=== PATIENT | female | born 1990 | race Hispanic/Latino ===

== ENCOUNTER 2018-04-17 02:06 | Emergency (ER) | payer OTHER, SELFPAY ==
[2018-04-17] MEDS ORDERED: IBUPROFEN 200 MG TAB PO ONE (02:57)
[2018-04-17] MEDS ORDERED: IBUPROFEN 400 MG TAB ONE (02:57)
--- NOTE | 2018-04-17 03:27 | EDPHYS ---
Physician Documentation [facility] Name: Mecca Johnson Age: 28 yrs Sex: Female : 1990 Arrival Date: 04/17/2018 Time: 02:13 Bed 17 Private MD: ED Physician Jackson Duenas HPI: 04/17 02:51 This 28 yrs old Female presents to ER via Wheelchair with complaints of Ankle pm1 Injury, Ankle Swelling. 02:51 The patient presents with pain, swelling. The complaints affect the right ankle. pm1 02:52 Onset: The symptoms/episode began/occurred last night. Context: The problem was pm1 sustained outdoors, resulted from Stepped in a hole, the patient is able to ambulate, patient able to drive here. Associated signs and symptoms: Pertinent positives: swelling, Pertinent negatives: calf tenderness. Modifying factors: the symptoms are aggravated by weight bearing, movement. Severity of symptoms: in the emergency department the symptoms are actually worse. The patient has not experienced similar symptoms in the past. Patient accidentally stepped in a hole in the grass resulting in right ankle pain. Attempted to ice without improvement. 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 - Social history:: Smoking status: Patient uses tobacco products, denies chronic smoking, but will smoke occasionally. - Ebola Screening: : No symptoms or risks identified at this time. ROS: 02:52 Constitutional: Negative for fever, chills, and weight loss, Eyes: Negative for injury, pm1 pain, redness, and discharge, ENT: Negative for injury, pain, and discharge, Neck: Negative for injury, pain, and swelling, Cardiovascular: Negative for chest pain, palpitations, and edema, Respiratory: Negative for shortness of breath, cough, wheezing, and pleuritic chest pain, Abdomen/GI: Negative for abdominal pain, nausea, vomiting, diarrhea, and constipation, Back: Negative for injury and pain. 02:52 MS/extremity: Positive for pain, swelling, of the anterior aspect of right ankle. Exam: 02:54 Constitutional: This is a well developed, well nourished patient who is awake, alert, pm1 and in no acute distress. Head/Face: Normocephalic, atraumatic. Neck: Trachea midline, no thyromegaly or masses palpated, and no cervical lymphadenopathy. Supple, full range of motion without nuchal rigidity, or vertebral point tenderness. No Meningismus. Chest/axilla: Normal chest wall appearance and motion. Nontender with no deformity. No lesions are appreciated. Cardiovascular: Regular rate and rhythm with a normal S1 and S2. No gallops, murmurs, or rubs. Normal PMI, no JVD. No pulse deficits. Respiratory: Lungs have equal breath sounds bilaterally, clear to auscultation and percussion. No rales, rhonchi or wheezes noted. No increased work of breathing, no retractions or nasal flaring. Abdomen/GI: Soft, non-tender, with normal bowel sounds. No distension or tympany. No guarding or rebound. No evidence of tenderness throughout. Back: No spinal tenderness. No costovertebral tenderness. Full range of motion. Skin: Warm, dry with normal turgor. Normal color with no rashes, no lesions, and no evidence of cellulitis. 02:54 Musculoskeletal/extremity: Extremities: grossly normal except: noted in the right ankle and anterior aspect of right ankle: swelling, tenderness. 02:54 Neuro: Orientation: is normal, Motor: moves all fours, Sensation: is normal, no obvious gross deficits. Vital Signs: 02:21 BP 120 / 92; Pulse 76; Resp 20; Temp 98.5(O); Pulse Ox 100% on R/A; Weight 129.27 kg ak1 (R); Height 5 ft. 0 in. (152.40 cm) (R); Pain 7/10; 03:51 BP 104 / 76; Pulse 63; Resp 16; Pulse Ox 100% on R/A; Pain 0/10; ao 02:21 Body Mass Index 55.66 (129.27 kg, 152.40 cm) ak1 MDM: 02:49 Patient medically screened. pm1 03:23 Data reviewed: vital signs. Data interpreted: Pulse oximetry: on room air is 100 %. pm1 Interpretation: normal. Counseling: I had a detailed discussion with the patient and/or guardian regarding: the historical points, exam findings, and any diagnostic results supporting the discharge/admit diagnosis, radiology results, the need for outpatient follow up, to return to the emergency department if symptoms worsen or persist or if there are any questions or concerns that arise at home. 04/17 02:51 Order name: Ankle Right 3 View XRAY pm1 04/17 03:23 Order name: Aircast Ankle Splint; Complete Time: 03:32 pm1 Administered Medications: 03:00 Drug: Ibuprofen 600 mg Route: PO; ao 03:32 Follow up: Response: No adverse reaction ao Disposition: 05:23 Co-signature as Attending Physician, Jackson Duenas MD I agree with the assessment and kdr plan of care. Disposition: 04/17/18 03:26 Discharged to Home. Impression: Sprain of other ligament of right ankle. - Condition is Stable. - Discharge Instructions: Ankle Sprain. - Prescriptions for Naprosyn 500 mg Oral Tablet - take 1 tablet by ORAL route 2 times per day take with food; 30 tablet. Tylenol- Codeine #3 300-30 mg Oral Tablet - take 2 tablets by ORAL route every 6 hours As needed; 20 tablet. - Work release form, Medication Reconciliation Form, Thank You Letter form. - Follow up: Emergency Department; When: As needed; Reason: Worsening of condition. Follow up: Private Physician; When: 2 - 3 days; Reason: Recheck today's complaints, Continuance of care, Re-evaluation by your physician. - Problem is new. - Symptoms have improved. Signatures: Dispatcher [employer] EDMS Jackson Duenas MD MD [facility] Afua Huffman RN RN ak1 Avelino Ballard RN RN Gabriele Ferguson, JUAN MANUEL COLLECTIONS DIRECTOR pm1 Corrections: (The following items were deleted from the chart) 03:53 03:26 04/17/2018 03:26 Discharged to Home. Impression: Sprain of other ligament of ao right ankle. Condition is Stable. Forms are Medication Reconciliation Form, Thank You Letter, Antibiotic Education, Prescription Opioid Use. Follow up: Emergency Department; When: As needed; Reason: Worsening of condition. Follow up: Private Physician; When: 2 - 3 days; Reason: Recheck today's complaints, Continuance of care, Re-evaluation by your physician. Problem is new. Symptoms have improved. pm1
--- NOTE | 2018-04-17 03:27 | ER ---
Nurse's Notes [facility] Name: Mecca Johnson Age: 28 yrs Sex: Female : 1990 Arrival Date: 04/17/2018 Time: 02:13 Bed 17 Private MD: Diagnosis: Sprain of other ligament of right ankle Presentation: 04/17 02:22 Presenting complaint: Patient states: rolled her right ankle at 2300 last night. pt ak1 tried ice and elevating right leg but swelling and pain increased. Transition of care: patient was not received from another setting of care. Onset of symptoms was April 17, 2018. Risk Assessment: Do you want to hurt yourself or someone else? Patient reports no desire to harm self or others. Initial Sepsis Screen: Does the patient meet any 2 criteria? No. Patient's initial sepsis screen is negative. Does the patient have a suspected source of infection? No. Patient's initial sepsis screen is negative. Care prior to arrival: ice and elevation. 02:22 Acuity: PIERCE 4 ak1 02:22 Method Of Arrival: Wheelchair ak1 Triage Assessment: 02:25 General: Appears in no apparent distress. Behavior is calm, cooperative. Pain: ak1 Complains of pain in right lateral malleolus. EENT: No signs and/or symptoms were reported regarding the EENT system. Neuro: No deficits noted. Cardiovascular: No deficits noted. Respiratory: No deficits noted. GI: No signs and/or symptoms were reported involving the gastrointestinal system. : No signs and/or symptoms were reported regarding the genitourinary system. Derm: No signs and/or symptoms reported regarding the dermatologic system. Musculoskeletal: Swelling present in right lateral malleolus. 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 - Social history:: Smoking status: Patient uses tobacco products, denies chronic smoking, but will smoke occasionally. - Ebola Screening: : No symptoms or risks identified at this time. Screenin:26 Abuse screen: Denies threats or abuse. Denies injuries from another. Nutritional ak1 screening: No deficits noted. Tuberculosis screening: No symptoms or risk factors identified. Fall Risk None identified. Assessment: 02:30 General: Appears in no apparent distress. comfortable, Behavior is calm, cooperative, ao appropriate for age. Pain: Complains of pain in right foot. Neuro: Level of Consciousness is awake, alert, obeys commands, Oriented to person, place, time, situation, Appropriate for age Moves all extremities. Speech is normal, Facial symmetry appears normal. Cardiovascular: Capillary refill < 3 seconds Patient's skin is warm and dry. Respiratory: Airway is patent Respiratory effort is even, unlabored, Respiratory pattern is regular, symmetrical. GI: Abdomen is non-distended. : No signs and/or symptoms were reported regarding the genitourinary system. EENT: No signs and/or symptoms were reported regarding the EENT system. Derm: Skin is intact, Skin temperature is warm. Musculoskeletal: Range of motion: intact in all extremities. 03:51 Reassessment: Dc home by wheel chair. Patient agree with the POC and to follow up with ao and orthopedic doctor. Vital Signs: 02:21 BP 120 / 92; Pulse 76; Resp 20; Temp 98.5(O); Pulse Ox 100% on R/A; Weight 129.27 kg ak1 (R); Height 5 ft. 0 in. (152.40 cm) (R); Pain 7/10; 03:51 BP 104 / 76; Pulse 63; Resp 16; Pulse Ox 100% on R/A; Pain 0/10; ao 02:21 Body Mass Index 55.66 (129.27 kg, 152.40 cm) ak1 ED Course: 02:13 Patient arrived in ED. al2 02:23 Triage completed. ak1 02:24 Avelino Ballard, RN is Primary Nurse. ao 02:25 Arm band placed on Patient placed in an exam room, on a stretcher, on pulse oximetry, ak1 Patient notified of wait time. 02:26 Patient has correct armband on for positive identification. Bed in low position. Call ak1 light in reach. Side rails up X 1. Pulse ox on. NIBP on. 02:49 Gabriele Watt NP is PHCP. pm1 02:49 Jackson Duenas MD is Attending Physician. pm1 03:07 X-ray completed. Portable x-ray completed in exam room. Patient tolerated procedure kw well. 03:08 Ankle Right 3 View XRAY In Process Unspecified. EDMS 03:53 No provider procedures requiring assistance completed. Patient did not have IV access ao during this emergency room visit. Administered Medications: 03:00 Drug: Ibuprofen 600 mg Route: PO; ao 03:32 Follow up: Response: No adverse reaction ao Outcome: 03:26 Discharge ordered by MD. pm1 03:53 Discharged to home via wheelchair. ao 03:53 Condition: stable 03:53 Discharge instructions given to patient, Instructed on discharge instructions, follow up and referral plans. Demonstrated understanding of instructions, follow-up care, medications, Prescriptions given X 2. 03:53 Patient left the ED. ao Signatures: Dispatcher [employer] EDMS Kristie Brown Amber RN RN ak1 Avelino Ballard RN RN Gabriele Ferguson, JUAN MANUEL SUPERVISOR OF WAY pm1 Nicole Sampson2
[2018-04-17 03:58] VITALS: TEMP 98.5; O2SAT 100
[2018-04-17 03:59] VITALS: BP 104/76
--- NOTE | 2018-04-17 09:21 | RAD REPORT ---
EXAM DESCRIPTION: RAD - Ankle Right 3 View - 04/17/2018 3:08 am CLINICAL HISTORY: Right ankle pain status post injury FINDINGS: No fracture or dislocation is seen. Marked lateral soft tissue swelling is present . If the patient continues have symptoms to suggest an occult fracture then a followup plain film series in 1 week would be recommended
== END 2018-04-17 03:53 | disposition home or self-care (01) ==
LOC: ER 02:06
DX: S93.491A Sprain of other ligament of right ankle, initial encounter (principal); X58.XXXA Exposure to other specified factors, initial encounter; Y93.01 Activity, walking, marching and hiking; Y92.9 Unspecified place or not applicable; Z72.0 Tobacco use
CPT/HCPCS: 99284

== ENCOUNTER 2021-12-12 18:28 | Inpatient (IN) | payer BC, SELFPAY ==
[2021-12-12 19:24] LABS: Urine Blood Trace-intact (Negative); Urine Glucose Negative (Negative); Urine Protein Negative (Negative); Urine Specific Gravity 1.025 (1.005-1.030)
[2021-12-12] MEDS ORDERED: MORPHINE 4 MG/ML SYR ONE ×2 (19:26→21:12)
[2021-12-12] MEDS ORDERED: ONDANSETRON 4 MG/2 ML VIAL ONE (19:26)
[2021-12-12] MEDS ORDERED: FAMOTIDINE 20 MG/2 ML VIAL IV ONE (19:27)
[2021-12-12] MEDS ORDERED: NA CHLORIDE 0.9% 1,000 ML ONE ×2 (19:27→20:38)
[2021-12-12 19:36] LABS: Absolute Lymphocytes (CBC) 2.2 K/uL (0.7-4.9); Hematocrit 37.5 % (36.0-45.0); MPV 9.6 fL (7.6-11.3); RBC Red Blood Cell Count 4.78 M/uL (3.86-4.86)
[2021-12-12 19:50] LABS: AST/SGOT 21 U/L (15-37); Albumin 3.4 g/dL (3.4-5.0); Alkaline Phosphatase 114 U/L (45-117); BUN Blood Urea Nitrogen 10 mg/dL (7-18); Bicarbonate 30 mmol/L (21-32); Glucose Level 92 mg/dL (74-106); Lipase 2387 U/L (73-393); Potassium 3.4 mmol/L (3.5-5.1); Protein, Total 8.1 g/dL (6.4-8.2); Sodium Level 137 mmol/L (136-145)
[2021-12-12 20:02] LABS: Urine Specific Gravity/Preg 1.025 (1.005-1.030)
--- NOTE | 2021-12-12 20:41 | RAD REPORT ---
EXAM DESCRIPTION: CTAbdomen Pelvis W Contrast - 12/12/2021 8:06 pm CLINICAL HISTORY: ABD PAIN COMPARISON: <Comparisons> TECHNIQUE: CT of the abdomen and pelvis was performed. All CT scans are performed using dose optimization technique as appropriate and may include automated exposure control or mA/KV adjustment according to patient size. FINDINGS: Lower chest: No acute abnormality. Liver: Hepatic steatosis . Biliary: No biliary ductal dilatation. Stomach: No significant focal abnormality. Duodenum: No significant focal abnormality. Pancreas: Mild stranding at the tail of the pancreas. Spleen: No significant abnormality. Adrenal: No suspicious lesions. Kidney/ureter: No hydronephrosis. No renal calculi. Too small to characterize and/or benign appearing renal lesions are noted. Retroperitoneum: No retroperitoneal adenopathy. Vascular: No aneurysm. Bowel: No significant focal abnormality. Peritoneum: No ascites or free air. Moderate fat containing ventral hernia. Bladder: Grossly unremarkable. Reproductive: No adnexal masses. Bones: No acute fracture. Other: n/a IMPRESSION: Mild pancreatitis involving the pancreatic tail without complicating features.
--- NOTE | 2021-12-12 20:42 | RAD REPORT ---
EXAM DESCRIPTION: US - Abdomen Exam Limited - 12/12/2021 8:36 pm CLINICAL HISTORY: EPIGASTRIC PAIN COMPARISON: Abdomen Pelvis W Contrast dated 12/12/2021 FINDINGS: The gallbladder demonstrates no gallstones. No pericholecystic fluid or gallbladder wall t hickening. The common bile duct is normal measuring 4 mm. The liver demonstrates no findings of intrahepatic biliary dilatation. IMPRESSION: Unremarkable examination.
--- NOTE | 2021-12-12 21:05 | EDPHYS ---
Physician Documentation [facility] Name: Mecca Johnson Age: 31 yrs Sex: Female : 1990 Arrival Date: 12/12/2021 Time: 18:32 Bed 14 Private MD: ED Physician Ty Khan HPI: 12/12 18:55 This 31 yrs old Female presents to ER via Ambulatory with complaints of pm1 Epigastric Pain. 18:55 The patient presents with abdominal pain in the epigastric area. Onset: The pm1 symptoms/episode began/occurred yesterday. The symptoms radiate to left upper quadrant. Associated signs and symptoms: Pertinent positives: nausea, Pertinent negatives: diarrhea, dysuria, fever, vomiting. The symptoms are described as achy, constant. Modifying factors: The symptoms are alleviated by nothing, the symptoms are aggravated by drinking, food. Severity of pain: in the emergency department the pain is actually worse. The patient has not experienced similar symptoms in the past. The patient has not recently seen a physician. 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 - Social history:: Smoking status: Patient denies any tobacco usage or history of. ROS: 18:55 Constitutional: Negative for fever, chills, and weight loss, Cardiovascular: Negative pm1 for chest pain, palpitations, and edema, Respiratory: Negative for shortness of breath, cough, wheezing, and pleuritic chest pain. 18:55 Back: Negative for injury and pain, : Negative for injury, bleeding, discharge, and swelling, MS/Extremity: Negative for injury and deformity, Skin: Negative for injury, rash, and discoloration, Neuro: Negative for headache, weakness, numbness, tingling, and seizure. 18:55 Abdomen/GI: Positive for abdominal pain, nausea, of the left upper quadrant, Negative for vomiting, diarrhea. 18:55 All other systems are negative. Exam: 18:55 Constitutional: This is a well developed, well nourished patient who is awake, alert, pm1 and in no acute distress. Head/Face: Normocephalic, atraumatic. 18:55 Back: No spinal tenderness. No costovertebral tenderness. Full range of motion. Skin: Warm, dry with normal turgor. Normal color with no rashes, no lesions, and no evidence of cellulitis. MS/ Extremity: Pulses equal, no cyanosis. Neurovascular intact. Full, normal range of motion. 18:55 Cardiovascular: Exam negative for acute changes, Rate: normal, Rhythm: regular, Pulses: no pulse deficits are appreciated, Heart sounds: normal, normal S1and S2. 18:55 Respiratory: Exam negative for acute changes, respiratory distress, shortness of breath, Breath sounds: are clear throughout. 18:55 Abdomen/GI: Inspection: obese Palpation: soft, in all quadrants, mild abdominal tenderness, in the epigastric area and left upper quadrant. 18:55 Neuro: Exam negative for acute changes, Orientation: is normal, Mentation: is normal, Motor: is normal, moves all fours. Vital Signs: 18:36 BP 147 / 72; Pulse 105; Resp 18; Temp 98.4(O); Pulse Ox 100% on R/A; Weight 133.81 kg; roldan Height 5 ft. 0 in. (152.40 cm); 19:30 BP 109 / 69; Pulse 91; Resp 18; Pulse Ox 98% on R/A; vc1 21:00 BP 109 / 73; Pulse 83; Resp 18; Pulse Ox 100% on R/A; vc1 18:36 Body Mass Index 57.61 (133.81 kg, 152.40 cm) roldan MDM: 18:41 Patient medically screened. pm1 20:19 Data reviewed: vital signs. Data interpreted: Pulse oximetry: on room air is 98 %. pm1 Interpretation: normal. 21:03 Counseling: I had a detailed discussion with the patient and/or guardian regarding: the pm1 historical points, exam findings, and any diagnostic results supporting the discharge/admit diagnosis, lab results, radiology results, the need for further work-up and treatment in the hospital. 12/12 18:55 Order name: Basic Metabolic Panel pm1 12/12 18:55 Order name: CBC with Diff pm1 12/12 18:55 Order name: Hepatic Function pm1 12/12 18:55 Order name: Lipase pm1 12/12 18:56 Order name: Basic Metabolic Panel; Complete Time: 21:17 EDMS 12/12 18:56 Order name: CBC with Automated Diff; Complete Time: 19:45 EDMS 12/12 18:56 Order name: Liver (Hepatic) Function; Complete Time: 21:17 EDMS 12/12 18:56 Order name: Lipase; Complete Time: 21:17 EDMS 12/12 19:23 Order name: Urine Dipstick-Ancillary; Complete Time: 19:32 EDMS 12/12 19:25 Order name: Urine --Ancillary (enter results) ds4 12/12 19:26 Order name: Urine --Ancillary; Complete Time: 20:06 EDMS 12/12 20:59 Order name: COVID-19 SARS RT PCR (Document "Date of Onset" if Symptomatic); Complete lp1 Time: 22:15 12/12 21:03 Order name: ETOH Level; Complete Time: 21:53 la1 12/12 21:03 Order name: Lipid Profile; Complete Time: 21:37 la1 12/12 18:55 Order name: IV Saline Lock; Complete Time: 19:34 pm1 12/12 18:55 Order name: Labs collected and sent; Complete Time: 19:34 pm1 12/12 18:55 Order name: Urine Dipstick-Ancillary (obtain specimen); Complete Time: 19:34 pm1 12/12 18:55 Order name: Urine Test (obtain specimen); Complete Time: 19:34 pm1 12/12 18:55 Order name: CT Abd/Pelvis - IV Contrast Only; Complete Time: 20:57 pm1 12/12 20:06 Order name: US Abdomen Limited; Complete Time: 20:57 pm1 12/13 04:32 Order name: CBC with Automated Diff EDMS 12/13 05:02 Order name: Comprehensive Metabolic Panel EDMS 12/13 05:02 Order name: Lipase EDMS 12/12 20:06 Order name: NPO; Complete Time: 20:40 pm1 Administered Medications: 19:33 Drug: Pepcid (famotidine) 20 mg Route: IVP; Site: right antecubital; vc1 12/13 03:23 Follow up: Response: No adverse reaction vc12/12 19:33 Drug: morphine 4 mg Route: IVP; Site: right antecubital; vc1 21:00 Follow up: Response: No adverse reaction vc1 19:33 Drug: Zofran (Ondansetron) 4 mg Route: IVP; Site: right antecubital; vc1 21:00 Follow up: Response: No adverse reaction vc1 19:33 Drug: NS 0.9% 1000 ml Route: IV; Rate: 1000 ml; Site: right antecubital; vc1 21:00 Follow up: IV Status: Completed infusion; IV Intake: 1000ml vc1 20:40 Drug: NS 0.9% 1000 ml Route: IV; Rate: 125 ml/hr; Site: right antecubital; vc1 12/13 00:00 Follow up: IV Status: Completed infusion; IV Intake: 500ml vc1 12/12 21:22 Drug: morphine 4 mg Route: IVP; Site: right antecubital; vc1 23:00 Follow up: Response: No adverse reaction; Pain is decreased vc1 12/13 01:30 Drug: Ketorolac 15 mg Route: IVP; Site: right antecubital; vc1 01:45 Follow up: Response: No adverse reaction vc1 Disposition: 12/14 19:03 Co-signature as Attending Physician, Ty Khan MD I agree with the assessment and rn plan of care. Attestation: The patient's history, exam findings, diagnostics, and a summary of any interventions or procedures was reviewed in detail with Gabriele Watt NP. Disposition Summary: 12/12/21 21:05 Hospitalization Ordered Hospitalization Status: Inpatient Admission pm1 Provider: Precious Mao pm1 Condition: Stable pm1 Problem: new pm1 Symptoms: have improved pm1 Bed/Room Type: Standard pm1 Location: Telemetry/MedSurg (Inpatient)(12/13/21 18:44) Room Assignment: [facility](12/13/21 18:44) Diagnosis - Acute pancreatitis pm1 Forms: - Medication Reconciliation Form pm1 - SBAR form pm1 Signatures: Dispatcher [employer] EDTy Galarza MD MD rn Garcia, Cindy, RN RN cg Marinas, Patrick, NP NP pm1 Au-Venessa Meyer RN RN ha Calcote, Vanessa, RN RN vc1 Corrections: (The following items were deleted from the chart) 12/12 19:38 18:37 PSHx: None; roldan vc1 19:38 19:35 PMHx: x2; vc1 vc1 22:30 21:05 Telemetry/MedSurg (Inpatient) pm1 cg 22:30 21:05 pm1 cg 12/13 18:44 12/12 22:30 [facility] ER HOLD cg cg 12/13 18:44 12/12 22:30 ERHOLD- cg cg
--- NOTE | 2021-12-12 21:05 | ER ---
Nurse's Notes [facility] Name: Mecca Johnson Age: 31 yrs Sex: Female : 1990 Arrival Date: 12/12/2021 Time: 18:32 Bed 14 Private MD: Diagnosis: Acute pancreatitis Presentation: 12/12 18:36 Chief complaint: Patient states: abdominal pain, painful after eating and drinkin. roldan Coronavirus screen: Vaccine status: Patient reports being unvaccinated. Ebola Screen: Patient denies travel to an Ebola-affected area in the 21 days before illness onset. Initial Sepsis Screen: Does the patient meet any 2 criteria? HR > 90 bpm. Does the patient have a suspected source of infection? No. Patient's initial sepsis screen is negative. Risk Assessment: Do you want to hurt yourself or someone else? Patient reports no desire to harm self or others. Onset of symptoms was December 11, 2021. 18:36 Method Of Arrival: Ambulatory roldan 18:36 Acuity: PIERCE 3 roldan Triage Assessment: 19:35 General: Appears in no apparent distress. comfortable, obese, Behavior is calm, vc1 cooperative, appropriate for age. Pain: Complains of pain in abdomen Pain currently is 8 out of 10 on a pain scale. GI: Abdomen is round non-distended, obese, Abd is soft and non tender X 4 quads. Reports lower abdominal pain, upper abdominal pain, nausea. 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 - Social history:: Smoking status: Patient denies any tobacco usage or history of. Screenin:00 Abuse screen: Denies threats or abuse. Nutritional screening: No deficits noted. vc1 Tuberculosis screening: No symptoms or risk factors identified. Fall Risk None identified. Assessment: 19:15 General: Appears in no apparent distress. uncomfortable, obese, Behavior is calm, vc1 cooperative, appropriate for age. Pain: Complains of pain in abdomen Pain currently is 8 out of 10 on a pain scale. Neuro: No deficits noted. Cardiovascular: No deficits noted. Respiratory: No deficits noted. GI: Abdomen is round non-distended, obese, Abd is soft and non tender Reports lower abdominal pain, upper abdominal pain, epigastric pain, flatulence, intolerance of food, nausea. 19:15 : No deficits noted. vc1 20:01 Reassessment: Patient appears in no apparent distress at this time. Patient and/or vc1 family updated on plan of care and expected duration. Pain level reassessed. Patient is alert, oriented x 3, equal unlabored respirations, skin warm/dry/pink. Patient states feeling better. Patient states symptoms have improved. Vital Signs: 18:36 BP 147 / 72; Pulse 105; Resp 18; Temp 98.4(O); Pulse Ox 100% on R/A; Weight 133.81 kg; roldan Height 5 ft. 0 in. (152.40 cm); 19:30 BP 109 / 69; Pulse 91; Resp 18; Pulse Ox 98% on R/A; vc1 21:00 BP 109 / 73; Pulse 83; Resp 18; Pulse Ox 100% on R/A; vc1 18:36 Body Mass Index 57.61 (133.81 kg, 152.40 cm) ED Course: 18:32 Patient arrived in ED. as 18:37 Triage completed. roldan 18:37 Arm band placed on right wrist. roldan 18:38 Venessa Hernandez, RN is Primary Nurse. roldan 18:39 Danielle Thrasher, RN is Primary Nurse. cb5 18:41 Gabriele Watt, IMCU NURSE is PHCP. pm1 18:41 Ty Khan MD is Attending Physician. pm1 19:00 Patient has correct armband on for positive identification. Bed in low position. Call vc1 light in reach. Side rails up X2. 19:33 Inserted saline lock: 20 gauge in right antecubital area, using aseptic technique. vc1 Blood collected. 19:34 Basic Metabolic Panel Sent. vc1 19:34 CBC with Diff Sent. vc1 19:34 Hepatic Function Sent. vc1 19:34 Lipase Sent. vc1 19:35 Urine --Ancillary (enter results) Sent. vc1 19:35 Lipase Sent. vc1 19:35 Liver (Hepatic) Function Sent. vc1 19:35 CBC with Automated Diff Sent. vc1 19:35 Basic Metabolic Panel Sent. vc1 20:07 CT Abd/Pelvis - IV Contrast Only In Process Unspecified. EDMS 20:38 US Abdomen Limited In Process Unspecified. EDMS 21:05 Precious Mao MD is Hospitalizing Provider. pm1 21:22 Lipid Profile Sent. vc1 : ETOH Level Sent. vc1 : COVID-19 SARS RT PCR (Document "Date of Onset" if Symptomatic) Sent. vc1 12/13 00:00 No provider procedures requiring assistance completed. Patient admitted, IV remains in vc1 place. 08:06 Primary Nurse role handed off by Danielle Thrasher RN bd Administered Medications: 12/12 19:33 Drug: Pepcid (famotidine) 20 mg Route: IVP; Site: right antecubital; vc1 12/13 03:23 Follow up: Response: No adverse reaction vc1 12/12 19:33 Drug: morphine 4 mg Route: IVP; Site: right antecubital; vc1 21:00 Follow up: Response: No adverse reaction 1 19:33 Drug: Zofran (Ondansetron) 4 mg Route: IVP; Site: right antecubital; vc1 21:00 Follow up: Response: No adverse reaction vc1 19:33 Drug: NS 0.9% 1000 ml Route: IV; Rate: 1000 ml; Site: right antecubital; vc1 21:00 Follow up: IV Status: Completed infusion; IV Intake: 1000ml vc1 20:40 Drug: NS 0.9% 1000 ml Route: IV; Rate: 125 ml/hr; Site: right antecubital; vc1 12/13 00:00 Follow up: IV Status: Completed infusion; IV Intake: 500ml vc1 12/12 21:22 Drug: morphine 4 mg Route: IVP; Site: right antecubital; vc1 23:00 Follow up: Response: No adverse reaction; Pain is decreased vc1 12/13 01:30 Drug: Ketorolac 15 mg Route: IVP; Site: right antecubital; vc1 01:45 Follow up: Response: No adverse reaction vc1 Intake: 12/12 21:00 IV: 1000ml; Total: 1000ml. vc1 12/13 00:00 IV: 500ml; Total: 1500ml. vc1 Outcome: 12/12 21:05 Decision to Hospitalize by Provider. pm1 12/13 00:00 Admitted to ER Hold. Please see [facility] for further documentation. vc1 Condition: good Instructed on the need for admit. 21:06 Patient left the ED. ll3 Signatures: Dispatcher [employer] EDMS Aubree Jansen Amelia as Marinas, Patrick, IMCU NURSE IMCU NURSE pm1 Aracelis Talamantes RN RN ll3 Au-Stager, PAMELA Clifford RN, Colleen, RN RN 5 Mecca Solorio RN RN vc1 Corrections: (The following items were deleted from the chart) 12/12 19:38 18:37 PSHx: None; roldan vc1 19:38 19:35 PMHx: x2; vc1 vc1
[2021-12-12 21:07] LABS: ALT/SGPT 34 U/L (12-78); Bilirubin Direct 0.1 mg/dL (0-0.2); Bilirubin Total 0.5 mg/dL (0.2-1.0)
--- NOTE | 2021-12-12 21:28 | P.HP ---
Certification for Inpatient Patient admitted to: Inpatient With expected LOS: >2 Midnights Patient will require the following post-hospital care: None Practitioner: I am a practitioner with admitting privileges, knowledge of patient current condition, hospital course, and medical plan of care. Services: Services provided to patient in accordance with Admission requirements found in Title 42 Section 412.3 of the Code of Federal Regulations Patient History Date of Service: 12/12/21 Primary Care Provider: none Reason for admission: Pancreatitis History of Present Illness: Patient is a 31-year-old female with no past medical history who presents to the ED with complaints of epigastric tenderness that radiates to the left. She states she started having pain in that region last night after eating dinner. She has not experienced pain like this before and denies a history of pancreatitis patient in the ED patient's lipase was 2387 potassium was 3.4, triglycerides pending, glucose 92. CT was positive for pancreatitis without complications. LFTs within normal range. Patient denies left upper quadrant pain. Patient will be admitted for further medical management and pain control of mild pancreatitis. 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 - Family History Mother -: Hypertension, Diabetes, Cancer Brother -: Liver disease, Other (see notes) - Social History Smoking Status: Never smoker Alcohol use: Yes CD- Drugs: No Caffeine use: Yes Place of Residence: Home Review of Systems 10-point ROS is otherwise unremarkable Gastrointestinal: Nausea, Abdominal Pain, As per HPI Physical Examination - Physical Exam General: Alert, In no apparent distress HEENT: Atraumatic, PERRLA, Mucous membr. moist/pink, EOMI, Sclerae nonicteric Neck: Supple, 2+ carotid pulse no bruit, No LAD, Without JVD or thyroid abnormality Respiratory: Clear to auscultation bilaterally, Normal air movement Cardiovascular: Regular rate/rhythm, Normal S1 S2 Gastrointestinal: Normal bowel sounds, No rebound, No guarding, Tenderness (mild epigastric tenderness) Musculoskeletal: No tenderness Integumentary: No rashes Neurological: Normal speech, Normal strength at 5/5 x4 extr, Normal tone, Normal affect - Studies Laboratory Data (last 24 hrs) 12/12/21 19:05: WBC 11.40 H, Hgb 12.1, Hct 37.5, Plt Count 294 12/12/21 19:05: Sodium 137, Potassium 3.4 L, BUN 10, Creatinine 0.74, Glucose 92, Total Bilirubin 0.5, AST 21, ALT 34, Alkaline Phosphatase 114, Lipase 2387 H Assessment and Plan - Plan Assessment: Acute pancreatitis without complication Morbid obesity Plan: Acute pancreatitis without complication: IVF 125 ml/hr. Morphine PRN. NPO. advance diet as tolerated. Trend lipase. pending triglycerides. Morbid obesity: address lifestyle change. DVT PPX: Lovenox Code status: Full Discharge Plan: Home Plan to discharge in: 48 Hours - Advance Directives Does patient have a Living Will: No Does patient have a Durable POA for Healthcare: No - Code Status/Comfort Care Code Status Assessed: Yes (full) Critical Care: No Time Spent Managing Pts Care (In Minutes): 55
[2021-12-12] MEDS ORDERED: ONDANSETRON 4 MG/2 ML VIAL IV PRN (22:40)
[2021-12-12] MEDS: D5.45NS W/KCL 20MEQ 1,000 ML IV SCH (22:40)
[2021-12-12] MEDS ORDERED: D5.45NS W/KCL 20MEQ 1,000 ML IV ONE (22:51)
[2021-12-12 23:15] VITALS: BMI 57.6
[2021-12-13] MEDS ORDERED: KETOROLAC 30 MG/ML INJ ONE (02:00)
[2021-12-13 04:26] LABS: Absolute Lymphocytes (CBC) 1.9 K/uL (0.7-4.9); Hematocrit 32.3 % (36.0-45.0); Lymphocytes % 19.3 % (15.3-44.8); MPV 9.5 fL (7.6-11.3); RBC Red Blood Cell Count 4.08 M/uL (3.86-4.86)
[2021-12-13 04:48] LABS: ALT/SGPT 29 U/L (12-78); AST/SGOT 13 U/L (15-37); Albumin 2.8 g/dL (3.4-5.0); Alkaline Phosphatase 96 U/L (45-117); BUN Blood Urea Nitrogen 11 mg/dL (7-18); Bicarbonate 25 mmol/L (21-32); Bilirubin Total 0.6 mg/dL (0.2-1.0); Glucose Level 147 mg/dL (74-106); Lipase 464 U/L (73-393); Potassium 3.8 mmol/L (3.5-5.1); Protein, Total 6.8 g/dL (6.4-8.2); Sodium Level 137 mmol/L (136-145)
[2021-12-13] MEDS: D5.45NS W/KCL 20MEQ 1,000 ML IV SCH ×2 (06:40→16:40)
[2021-12-13] MEDS ORDERED: D5.45NS W/KCL 20MEQ 1,000 ML IV ONE ×2 (06:52→16:21)
[2021-12-13] MEDS ORDERED: ENOXAPARIN 40 MG/0.4 ML SQ ONE (07:35)
[2021-12-13] MEDS: ENOXAPARIN 40 MG/0.4 ML SQ SCH (09:00)
[2021-12-13] MEDS ORDERED: MORPHINE 2 MG/ML SYR ONE (09:21)
[2021-12-13] MEDS ORDERED: ONDANSETRON 4 MG/2 ML VIAL ONE (09:21)
[2021-12-13] MEDS: MORPHINE 2 MG/ML SYR IV PRN ×2 (09:29→22:08)
--- NOTE | 2021-12-13 17:57 | P.PN ---
Subjective Date of Service: 12/13/21 Pain is much improved. Will start diet in the morning Review of Systems 10-point ROS is otherwise unremarkable Physical Examination - Vital Signs Temperature: 98.0 F Blood Pressure: 131/78 Pulse: 89 Respirations: 18 Pulse Ox (%): 98 - Physical Exam General: Alert, In no apparent distress HEENT: Atraumatic, PERRLA, EOMI Neck: Supple, JVD not distended Respiratory: Clear to auscultation bilaterally, Normal air movement Cardiovascular: Regular rate/rhythm, Normal S1 S2 Gastrointestinal: Normal bowel sounds, No tenderness Musculoskeletal: No tenderness Integumentary: No rashes Neurological: Normal speech, Normal tone, Normal affect Lymphatics: No axilla or inguinal lymphadenopathy - Studies Laboratory Data (last 24 hrs) 12/12/21 19:05: Triglycerides 98, Cholesterol 159, HDL Cholesterol 32 L, Cholesterol/HDL Ratio 4.97 12/12/21 19:05: WBC 11.40 H, Hgb 12.1, Hct 37.5, Plt Count 294 12/12/21 19:05: Sodium 137, Potassium 3.4 L, BUN 10, Creatinine 0.74, Glucose 92, Total Bilirubin 0.5, AST 21, ALT 34, Alkaline Phosphatase 114, Lipase 2387 H Medications List Reviewed: Yes Assessment & Plan - Problems (Diagnosis) (1) Acute pancreatitis Current Visit: Yes Status: Acute - Plan 1. Continue with IV hydration 2. Continue with IV antibiotics 3. Continue with pain control 4. Ice chips 5. Pain control 6. Monitor CBC, BMP, LFTs and lipase along with electrolytes. 7. GI and DVT prophylaxis Discharge Plan: Home Plan to discharge in: Greater than 2 days - Advance Directives Does patient have a Living Will: No Does patient have a Durable POA for Healthcare: No - Code Status/Comfort Care Code Status Assessed: Yes Code Status: Full Code Critical Care: No Time Spent Managing PTS Care (In Minutes): 35
[2021-12-14] MEDS: D5.45NS W/KCL 20MEQ 1,000 ML IV SCH ×2 (02:21→09:18)
[2021-12-14 02:22] VITALS: O2SAT 100
[2021-12-14 04:06] LABS: Hematocrit 31.6 % (36.0-45.0); Lymphocytes % 22.7 % (15.3-44.8); MPV 9.5 fL (7.6-11.3); RBC Red Blood Cell Count 4.01 M/uL (3.86-4.86)
[2021-12-14 04:34] LABS: ALT/SGPT 29 U/L (12-78); AST/SGOT 14 U/L (15-37); Albumin 2.8 g/dL (3.4-5.0); Alkaline Phosphatase 92 U/L (45-117); BUN Blood Urea Nitrogen 4 mg/dL (7-18); Bicarbonate 25 mmol/L (21-32); Bilirubin Total 0.9 mg/dL (0.2-1.0); Glucose Level 118 mg/dL (74-106); Lipase 149 U/L (73-393); Potassium 3.7 mmol/L (3.5-5.1); Sodium Level 137 mmol/L (136-145)
[2021-12-14] MEDS ORDERED: POTASSIUM CL 20 MEQ in NA CHLORIDE 0.9% 20 MEQ/100 ML BAG IV ONE (09:00)
[2021-12-14] MEDS: ENOXAPARIN 40 MG/0.4 ML SQ SCH (09:18)
[2021-12-14 13:00] VITALS: BP 112/64; TEMP 97.5
== END 2021-12-14 13:40 | disposition home or self-care (01) | DRG 438 ==
LOC: ER 18:28 → ERHOLD 21:20 → 4TH 12-13 20:22
PROVIDERS: ADMIT Hospitalist; ATTEND Hospitalist
DX: K85.90 Acute pancreatitis without necrosis or infection, unspecified (principal); U07.1 COVID-19; Z68.43 Body mass index [BMI] 50.0-59.9, adult; E66.01 Morbid (severe) obesity due to excess calories
CPT/HCPCS: 36415; 74177; 76705; 80048; 80053; 80061; 80076; 80320; 81003; 81025; 83690; 85025; 96361; 96374; 96375; 99285; J1650; J2270; J2405; J3480; J7030; Q9967; U0003